=== PATIENT | female | born 1965 | race Caucasian/White ===

== ENCOUNTER 2020-03-24 12:39 | Emergency (ER) | payer MEDICARE, MEDICAID, SELFPAY ==
[2020-03-24 13:05] VITALS: BP 110/80; PULSE 96; RESP 18; TEMP 36.4; O2SAT 95; BMI 30.4
--- NOTE | 2020-03-24 13:41 | CT_ITS ---
EXAMINATION: CT HEAD WITHOUT CONTRAST CLINICAL INFORMATION: Headache. Evaluate for bleed. COMPARISON: Previous head CT scans most recent February 2016 and brain MRI June 2015 TECHNIQUE: Contiguous axial imaging was performed from the skull base to vertex without intravenous administration of contrast. This CT examination was performed using dose optimization techniques as appropriate, variously including the following: *Automated exposure control *Adjustment of mA and/or kV according to patient size (this includes techniques or standardized protocols for targeted exams where dose is matched to indication/reason for exam; i.e. extremities or head) *Use of iterative reconstruction technique DLP: 733 mGy-cm FINDINGS: There is no evidence of extra-axial collection. There is no evidence of intra-axial or extra-axial hemorrhage. The ventricles and extra-axial CSF spaces are prominent. The left lateral ventricle is slightly more dilated then the right in the ventricles are dilated out of proportion to the extra-axial CSF spaces suggestive of central atrophy.. Finding is unchanged from previous exams. There is nonspecific periventricular white matter disease. 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 No mass, mass effect or acute infarct is seen. Review at bone windows is normal. Visualized paranasal sinuses, mastoid air cells and middle ears are clear. CT/CT head/brain wo con IMPRESSION: No acute intracranial findings. Atrophy and white matter disease.
--- NOTE | 2020-03-24 13:57 | ED.HA ---
HPI - Headache General Chief Complaint: Headache Stated Complaint: headache Time Seen by Provider: 03/24/20 13:14 Source: patient Mode of arrival: ambulatory Limitations: no limitations History of Present Illness HPI Narrative: Patient presents to ED for headache that began at 05:00. Patient states no nausea, vomiting, loss of vision, eye pain, neck stiffness, fever, chills, or night sweats. Patient denies any slurred speech, or loss of vision. Patient has chronic weakness/paralysis of lower extremities due to multiple sclerosis, but she states she has feeling in her lower extremities. Patient states she usually suffers from chronic headaches and this is a similar presentation. PATIENT STATES HEADACHE IS GETTING BETTER. Related Data Previous Rx's Medication Instructions Recorded naproxen 500 mg PO BID PRN #20 tab 03/24/20 Allergies Allergy/AdvReac Type Severity Reaction Status Date / Time acetaminophen [From VICODIN] Allergy Unknown RASH Unverified 12/05/19 16:51 hydrocodone [From VICODIN] Allergy Unknown RASH Unverified 12/05/19 16:51 mirtazapine [MIRTAZAPINE] Allergy Unknown RASH Unverified 12/05/19 16:51 oxycodone [OXYCODONE] Allergy Unknown RASH Unverified 12/05/19 16:51 Review of Systems Review of Systems: Yes all other systems are reviewed and are negative Constitutional: Constitutional: Reports as per HPI, Reports no additional constitutional complaints and Reports headache(s) (Improving) Eyes: Eyes: Reports as per HPI and Reports no additional eye complaints ENT: Reports system reviewed and no additional complaints, except as documented, Reports as per HPI and Reports headache(s) (Improving) Cardiovascular: Cardiovascular: Reports as per HPI and Reports no additional cardiovascular complaints Respiratory: Respiratory: Reports as per HPI and Reports no additional respiratory complaints Gastrointestinal: Gastrointestinal: Reports as per HPI and Reports no additional gastrointestinal complaints Genitourinary: Genitourinary: Reports no additional female genitourinary complaints and Reports as per HPI Musculoskeletal: Musculoskeletal: Reports no additional musculoskeletal complaints and Reports as per HPI Comments: Multiple sclerosis Neurologic: Reports system reviewed and no additional complaints, except as documented, Reports as per HPI and Reports headache(s) (Improving) Psychiatric: Psychiatric: Reports no additional psychiatric complaints and Reports as per HPI [facility] Past Medical History Medical History (Updated 03/24/20 @ 16:04 by KAROLYN Root) Anxiety Multiple sclerosis Thyroid activity decreased Social History Social History Advance Directives: No Advance Directives Information Provided: No Physical Exam Vital Signs: Vital Signs: Last Vital Signs Temp 97.6 F 03/24/20 13:05 Pulse 98 03/24/20 15:53 Resp 16 03/24/20 15:53 BP 117/38 L 03/24/20 15:53 Pulse Ox 95 03/24/20 13:05 Body Mass Index 30.4 Const: General: cooperative, healthy appearing, comfortable, no acute distress, well developed and awake Orientation/consciousness: patient oriented x3 HENMT: Head: Yes normal to inspection, Yes No palpable skull fracture present, Yes normocephalic, Yes atraumatic, Yes abrasion, No Acrocyanosis present, No Bennett's sign, No contusion, No cranial bruits, No hematoma, No laceration, No occipital foramen tenderness, No palpable skull fracture, No raccoon eyes, No scalp lesion, Yes scalp tenderness, No Temporal artery tenderness present and No periorbital ecchymosis Eyes: Other: Negative for nystagmus. Negative for photophobia. General: appearance normal, both eyes and all related structures Neck: Neck: Yes normal visual inspection, Yes full ROM, Yes no lymphadenopathy, Yes no meningeal signs, Yes trachea midline, Yes supple and No tender Chest: Chest palpation & inspection: normal inspection of the chest and normal palpation of entire chest wall Resp: Effort & Inspection: normal respiratory effort and able to speak in complete sentences Auscultation: clear to auscultation bilaterally Cardio: Jugular venous distension: no JVD Heart sounds: S1 normal heart sound present and S2 normal heart sound present GI: Inspection: Yes normal to inspection and No abdominal wall ecchymosis Palpation (GI): Soft to palpation, not firm, nontender, no guarding and not rigid : General: No CVA tenderness and Yes no CVA tenderness Back/Spine/Pelvis: Back: no CVA tenderness, No CVA tenderness and No back tenderness Skin: General skin exam: no rashes or lesions noted and elasticity normal Neuro: Other: Negative facial droop. Negative slurred speech. Upper extremities and equal strength 5+. Patient not able to move lower extremities due to multiple sclerosis ( chronic)but has feeling in feet.. Negative pronator drift. General: patient oriented x3, no meningeal signs and CN's II-XI intact bilaterally Cranial nerves: Yes CN's II-XII intact bilaterally Extrem: General: Yes normal to inspection and Yes full ROM Psych: Appearance: grossly normal, well kempt and not disheveled Course Course Course Narrative: Not suspect a meningitis. Not suspecting optic neuritis. Not suspected multiple sclerosis exacerbation. Patient does not have any new neuro deficit. Patient pointed to posterior parIETAL of head where she is having pain. Patient states headache has actually improved BEFORE COMING TO THE ed. WILL SEND PATINET for head CT scan to rule out brain bleed although very unlikely. Reevaluation(s) Reevaluation #1: Head CT scan came back negative. Patient given Toradol for pain. Once again patient presently does not have any new neuro deficit/changes. Not suspecting multiple sclerosis exacerbation, or stroke. Head CT scan after 6 hours does not show brain bleed. Not sepsis suspected subarachnoid hemorrhage OR MENINGITIS. PATIENT HEADCHE RESOLVED. MDM - Headache MDM Narrative Medical decision making narrative: HEADACHE Discharge Plan Discharge Clinical Impression: Headache Patient Disposition: Home, Self-Care Instructions: General Headache (ED) Additional Instructions: Return to ED for any slurred speech, loss of vision, new weakness, facial droop, fever, chills, neck stiffness, body aches, or any other concerning symptoms. Prescriptions: New naproxen 500 mg tablet 500 mg PO BID PRN (Reason: pain) Qty: 20 RF: 0 Referrals: Keara Ordoñez, MSN [Primary Care Provider] - 2 days (Presents to the ED for headache that resolved. CT scan negative for any bleed or stroke.) Print Language: Senegalese
[2020-03-24] MEDS: Ketorolac Tromethamine 30 MG/ML VIAL IM (15:48)
[2020-03-24 15:53] VITALS: BP 117/38; PULSE 98; RESP 16
== END 2020-03-24 20:22 | disposition home or self-care (01) ==
PROVIDERS: Emergency Provider Emergency Medicine; PCP Family Medicine
DX: R51.9 Headache, unspecified (principal); G35 Multiple sclerosis
CPT/HCPCS: 70450; 96372; 99283; 99284; J1885

== ENCOUNTER 2020-04-15 12:28 | Observation (INO) | payer MEDICARE, MEDICAID, SELFPAY ==
[2020-04-15 12:39] VITALS: BP 106/55; BP 120/60; PULSE 77; PULSE 90; RESP 18; TEMP 36.5; O2SAT 96; O2SAT 97; BMI 28.8
--- NOTE | 2020-04-15 12:45 | CT_ITS ---
EXAMINATION: CT HEAD WITHOUT CONTRAST CLINICAL INFORMATION: Chronic headache. COMPARISON: CT brain 03/24/2020 TECHNIQUE: Contiguous axial imaging was performed from the skull base to vertex without intravenous administration of contrast. This CT examination was performed using dose optimization techniques as appropriate, variously including the following: *Automated exposure control *Adjustment of mA and/or kV according to patient size (this includes techniques or standardized protocols for targeted exams where dose is matched to indication/reason for exam; i.e. extremities or head) *Use of iterative reconstruction technique DLP: 761 mGy-cm FINDINGS: There is no evidence of acute intracranial hemorrhage or territorial infarction. No abnormal mass effect or midline shift is seen. Fagan to white matter differentiation is well preserved. No extra-axial fluid collections are identified. Both lateral ventricles are symmetrical but moderately dilated. There is diffuse periventricular hypodensity suggestive of chronic small vessel ischemic changes. The osseous structures and soft tissues are normal. The mastoid air cells and visualized portions of the paranasal sinuses are well aerated. CT/CT head/brain wo con IMPRESSION: No acute intracranial process seen Moderate cerebral volume loss and chronic small vessel ischemic changes in both cerebral hemispheres. No change from 03/24/2020
--- NOTE | 2020-04-15 12:47 | ECG_ITS ---
Test Reason : SYNCOPE Blood Pressure : / mmHG Vent. Rate : 070 BPM Atrial Rate : 070 BPM P-R Int : 188 ms QRS Dur : 066 ms QT Int : 402 ms P-R-T Axes : 052 024 037 degrees QTc Int : 434 ms Normal sinus rhythm Nonspecific T wave abnormality Abnormal ECG When compared with ECG of 23-FEB-2016 22:27, No significant change was found Referred By: Romie Mooney Electronically Signed By:Vicente Zavala
--- NOTE | 2020-04-15 13:02 | ED.SYNCOPE ---
HPI - Syncope General Chief Complaint: Syncope <KAROLYN Root - Last Filed: 04/15/20 22:19> Stated Complaint: FAINTING EPISODES <KAROLYN Root - Last Filed: 04/15/20 22:19> Time Seen by Provider: 04/15/20 12:36 <KAROLYN Root Last Filed: 04/15/20 22:19> Source: patient <KAROLYN Root Last Filed: 04/15/20 22:19> Mode of arrival: ambulatory <KAROLYN Root Last Filed: 04/15/20 22:19> Limitations: no limitations <KAROLYN Root Last Filed: 04/15/20 22:19> History of Present Illness HPI narrative: Patient presents to the ED for multiple syncopal episodes. As per report from EMS and SERVICES ADVISOR. Patient does not like to take a shower. Patient is bedbound. Usually P she has to stand up with an aide put in in a chair bring into a shower and then lithograph operator to his sitting chair and shower to get clean. As per EMS report, [facility] informed to that once again patient does not like taking shower. SERVICES ADVISOR informed in 1 day informed patient she was advised again to shower and a stood her up she syncopized. Once they placed her in this sitting shower chair to be clean and and when they informed patient that she had to take a shower patient then syncopized again. EMS report does not state patient having tremors of body to indicate seizure or urinary/bowel incontinence. As per patient she did not eat this morning and does recall in passing out twice in the shower. Patient denies having any chest pain, shortness of breath, or dizziness before passing out. Once again patient is bed-bound and has to be lifting from the bed into wheelchair or sitting chair. <KAROLYN Root Last Filed: 04/15/20 22:19> Related Data Home Medications: Home Medications Medication Instructions Recorded Confirmed albuterol sulfate [Ventolin HFA] 2 puff INHALATION Q6H PRN 04/15/20 04/15/20 baclofen 40 mg PO QID 04/15/20 04/15/20 bupropion HCl 300 mg PO QAM 04/15/20 04/15/20 calcium carbonate-vitamin D3 1 tab PO BIDWM 04/15/20 04/15/20 [Calcium 600 + D(3)] cyanocobalamin (vitamin B-12) 1,000 mcg PO DAILY 04/15/20 04/15/20 [Vitamin B-12] ferrous sulfate 325 mg PO DAILY 04/15/20 04/15/20 gabapentin 100 mg PO BEDTIME 04/15/20 04/15/20 glatiramer [Copaxone] 20 mg SUBCUT DAILY 04/15/20 04/15/20 levothyroxine 150 mcg PO DAILY@62904/15/20 04/15/20 naproxen 500 mg PO BID PRN 04/15/20 04/15/20 omeprazole 20 mg PO DAILY@62904/15/20 04/15/20 pravastatin 40 mg PO BEDTIME 04/15/20 04/15/20 trazodone 100 mg PO BEDTIME 04/15/20 04/15/20 Previous Rx's Medication Instructions Recorded cefuroxime axetil 250 mg PO Q12H #14 tab 04/17/20 <KAROLYN Root - Last Filed: 04/15/20 22:19> Allergies/Adverse Reactions: Allergies Allergy/AdvReac Type Severity Reaction Status Date / Time acetaminophen [From VICODIN] Allergy Intermediate RASH Verified 04/15/20 12:39 hydrocodone [From VICODIN] Allergy Intermediate RASH Verified 04/15/20 12:39 mirtazapine [MIRTAZAPINE] Allergy Intermediate RASH Verified 04/15/20 12:39 oxycodone [OXYCODONE] Allergy Intermediate RASH Verified 04/15/20 12:39 <KAROLYN Root - Last Filed: 04/15/20 22:19> Review of Systems Constitutional: Constitutional: Reports as per HPI and Reports no additional constitutional complaints <KAROLYN Root - Last Filed: 04/15/20 22:19> Eyes: Eyes: Reports as per HPI and Reports no additional eye complaints <KAROLYN Root - Last Filed: 04/15/20 22:19> ENT: Reports system reviewed and no additional complaints, except as documented and Reports as per HPI <KAROLYN Root Last Filed: 04/15/20 22:19> Cardiovascular: Cardiovascular: Reports as per HPI, Reports no additional cardiovascular complaints and Reports syncope (Twice) <KAROLYN Root - Last Filed: 04/15/20 22:19> Respiratory: Respiratory: Reports as per HPI and Reports no additional respiratory complaints <KAROLYN Root - Last Filed: 04/15/20 22:19> Gastrointestinal: Gastrointestinal: Reports as per HPI and Reports no additional gastrointestinal complaints <KAROLYN Root - Last Filed: 04/15/20 22:19> Genitourinary: Genitourinary: Reports no additional female genitourinary complaints and Reports as per HPI <KAROLYN Root - Last Filed: 04/15/20 22:19> Musculoskeletal: Musculoskeletal: Reports no additional musculoskeletal complaints and Reports as per HPI <KAROLYN Root - Last Filed: 04/15/20 22:19> Neurologic: Reports system reviewed and no additional complaints, except as documented, Reports as per HPI and Reports syncope (Twice) <KAROLYN Root - Last Filed: 04/15/20 22:19> Psychiatric: Psychiatric: Reports no additional psychiatric complaints and Reports as per HPI <KAROLYN Root - Last Filed: 04/15/20 22:19> [facility] Past Medical History Medical History: Medical History Anxiety Multiple sclerosis Thyroid activity decreased <KAROLYN Root - Last Filed: 04/15/20 22:19> Social History Social History: Social History Alcohol intake: never Smoking Status: Never smoker Advance Directives Date on File: 04/15/20 service: No Current occupational status: disabled <KAROLYN Root - Last Filed: 04/15/20 22:19> Physical Exam Vital Signs: Vital Signs: Last Vital Signs Temp 97.8 F 04/17/20 15:20 Pulse 19 L 04/17/20 15:20 Resp 19 04/17/20 15:20 BP 123/69 04/17/20 15:20 Pulse Ox 94 04/17/20 15:20 Body Mass Index 28.8 <KAROLYN Root - Last Filed: 04/15/20 22:19> Vital Signs: Last Vital Signs Temp 97.8 F 04/17/20 15:20 Pulse 19 L 04/17/20 15:20 Resp 19 04/17/20 15:20 BP 123/69 04/17/20 15:20 Pulse Ox 94 04/17/20 15:20 Body Mass Index 28.8 <Josue Todd MD - Last Filed: 04/22/20 10:48> Const: General: cooperative, healthy appearing, comfortable, no acute distress, well developed, alert, awake and Physically active <KAROLYN Root - Last Filed: 04/15/20 22:19> Orientation/consciousness: patient oriented x3 <KAROLYN Root - Last Filed: 04/15/20 22:19> HENMT: Head: Yes normal to inspection and Yes No palpable skull fracture present <KAROLYN Root - Last Filed: 04/15/20 22:19> Eyes: General: appearance normal, both eyes and all related structures <KAROLYN Root - Last Filed: 04/15/20 22:19> Neck: Neck: Yes normal visual inspection, Yes full ROM, Yes no lymphadenopathy, Yes no meningeal signs, Yes trachea midline, Yes supple and No tender <KAROLYN Root - Last Filed: 04/15/20 22:19> Chest: Chest palpation & inspection: normal inspection of the chest and normal palpation of entire chest wall <KAROLYN Root - Last Filed: 04/15/20 22:19> Resp: Effort & Inspection: normal respiratory effort and able to speak in complete sentences <KAROLYN Root Last Filed: 04/15/20 22:19> Auscultation: clear to auscultation bilaterally <KAROLYN Root - Last Filed: 04/15/20 22:19> Cardio: Jugular venous distension: no JVD <KAROLYN Root Last Filed: 04/15/20 22:19> Heart sounds: S1 normal heart sound present and S2 normal heart sound present <KAROLYN Root Last Filed: 04/15/20 22:19> GI: Inspection: Yes normal to inspection and No abdominal wall ecchymosis <KAROLYN Root Last Filed: 04/15/20 22:19> Palpation (GI): Soft to palpation, not firm, nontender, no guarding and not rigid <KAROLYN Root - Last Filed: 04/15/20 22:19> : General: No CVA tenderness and Yes no CVA tenderness <KAROLYN Root - Last Filed: 04/15/20 22:19> Back/Spine/Pelvis: Back: no CVA tenderness, No CVA tenderness and No back tenderness <KAROLYN Root - Last Filed: 04/15/20 22:19> Skin: General skin exam: no rashes or lesions noted and elasticity normal <KAROLYN Root - Last Filed: 04/15/20 22:19> Neuro: Other: Negative for slurred speech. Negative for facial droop. Patient at baseline could move only upper extremities. Patient cannot move lower extremities AT BASELINE. Patient does have sensation in lower extremities. <KAROLYN Root - Last Filed: 04/15/20 22:19> General: patient oriented x3, no meningeal signs and CN's II-XI intact bilaterally <KAROLYN Root - Last Filed: 04/15/20 22:19> Cranial nerves: Yes CN's II-XII intact bilaterally <KAROLYN Root - Last Filed: 04/15/20 22:19> Extrem: General: Yes normal to inspection and Yes full ROM <KAROLYN Root - Last Filed: 04/15/20 22:19> Psych: Appearance: grossly normal, well kempt and not disheveled <KAROLYN Root - Last Filed: 04/15/20 22:19> Course Course Course Narrative: History physical exam indicate vasovagal syncope, but due to H patient will have a medical workup which included blood work, troponin, EKG, and head CT. Presently negative for any neuro deficit. Not suspecting MS exacerbation. Patient will be given IV fluids. <KAROLYN Root - Last Filed: 04/15/20 22:19> I have reviewed the chart <Josue Todd MD - Last Filed: 04/22/20 10:48> Reevaluation(s) Reevaluation #1: Patient's troponin came back negative. Patient's EKG negative for STEMI. Patient head CT came back normal. Due to multiple episodes of syncope D-dimer was sent to see if patient should have a CT to rule out PE. Patient denies any chest pain, shortness of breath, is not hypoxic or tachycardic. <KAROLYN Root - Last Filed: 04/15/20 22:19> Time: 13:04 <KAROLYN Root - Last Filed: 04/15/20 22:19> Reevaluation #2: Patient D-dimer negative. Wells score 0. Once again patient does not have any new neuro deficit. Case presented to hospitalist for admission. <KAROLYN Root - Last Filed: 04/15/20 22:19> Time: 15:38 <KAROLYN Root - Last Filed: 04/15/20 22:19> MDM - Syncope Lab Data Result diagrams: : 04/15/20 13:04 04/15/20 13:04 <KAROLYN Root - Last Filed: 04/15/20 22:19> Labs: Lab Results 04/15/20 04/15/20 04/15/20 Range/Units 13:04 13:04 13:04 WBC 9.5 (4.8-10.8) X10*3/uL RBC 4.73 (4.20-5.50) X10*6/uL Hgb 13.4 (12.0-16.0) g/dl Hct 43.2 (37-47) % MCV 91.3 (80-98) fL MCH 28.3 (27.0-33.0) pg MCHC 31.0 (31.0-35.0) g/dl RDW 13.7 (11.0-16.0) % Plt Count 224 (160-400) X10*3/uL MPV 11.3 (9.4-12.3) fL Immature Gran % (Auto) 0.3 (0.0-0.4) % Neut % (Auto) 75.8 H (45-73) % Lymph % (Auto) 15.4 L (20-40) % [place] % (Auto) 5.8 (2-11) % Eos % (Auto) 1.7 (0-4) % Baso % (Auto) 1.0 (0-2) % Lymph # (Auto) 1.5 (1.2-4.9) X10*3/uL [place] # (Auto) 0.6 (0.1-1.2) X10*3/uL Eos # (Auto) 0.2 (0.0-0.4) X10*3/uL Baso # (Auto) 0.1 (0.0-0.2) X10*3/uL Abs Immat Gran (auto) 0.03 (0.00-0.03) X10*3/uL Absolute Neuts (auto) 7.2 (2.0-8.3) X10*3/uL Absolute Nucleated RBC 0.000 (0.0-0.012) X10*3/uL Nucleated RBC % (auto) 0.0 (0.0-0.2) /100WBC PT 13.4 H (10.8-13.0) SEC INR 1.1 (0.9-1.1) APTT 32.0 (24.1-38.0) SEC D-Dimer < 200 NG/ML Sodium 140 (135-145) mmol/L Potassium 4.2 (3.3-5.1) mmol/l Chloride 104 (96-108) mmol/L Carbon Dioxide 26 (22-29) mmol/L Anion Gap 14 (12-20) BUN 18 H (9-16) mg/dL Creatinine 0.58 (0.5-1.4) mg/dL Estim Creat Clear Calc 124.4 Estimated GFR > 60 Random Glucose 111 (60-115) mg/dL Calcium 9.5 (8.4-10.2) mg/dL Total Bilirubin 0.4 (0.0-1.0) mg/dL AST 16 (5-31) U/L ALT 16 (0-31) U/L Alkaline Phosphatase 82 (39-117) U/L Troponin I High Sens (<3.5-17.0) ng/L Total Protein 7.0 (6.5-8.0) g/dL Albumin 3.6 (3.5-5.0) g/dL COVID-19 (MARIELA) (Negative) COVID-19 Clin Com 04/15/20 04/15/20 Range/Units 13:04 14:31 WBC (4.8-10.8) X10*3/uL RBC (4.20-5.50) X10*6/uL Hgb (12.0-16.0) g/dl Hct (37-47) % MCV (80-98) fL MCH (27.0-33.0) pg MCHC (31.0-35.0) g/dl RDW (11.0-16.0) % Plt Count (160-400) X10*3/uL MPV (9.4-12.3) fL Immature Gran % (Auto) (0.0-0.4) % Neut % (Auto) (45-73) % Lymph % (Auto) (20-40) % [place] % (Auto) (2-11) % Eos % (Auto) (0-4) % Baso % (Auto) (0-2) % Lymph # (Auto) (1.2-4.9) X10*3/uL [place] # (Auto) (0.1-1.2) X10*3/uL Eos # (Auto) (0.0-0.4) X10*3/uL Baso # (Auto) (0.0-0.2) X10*3/uL Abs Immat Gran (auto) (0.00-0.03) X10*3/uL Absolute Neuts (auto) (2.0-8.3) X10*3/uL Absolute Nucleated RBC (0.0-0.012) X10*3/uL Nucleated RBC % (auto) (0.0-0.2) /100WBC PT (10.8-13.0) SEC INR (0.9-1.1) APTT (24.1-38.0) SEC D-Dimer NG/ML Sodium (135-145) mmol/L Potassium (3.3-5.1) mmol/l Chloride (96-108) mmol/L Carbon Dioxide (22-29) mmol/L Anion Gap (12-20) BUN (9-16) mg/dL Creatinine (0.5-1.4) mg/dL Estim Creat Clear Calc Estimated GFR Random Glucose (60-115) mg/dL Calcium (8.4-10.2) mg/dL Total Bilirubin (0.0-1.0) mg/dL AST (5-31) U/L ALT (0-31) U/L Alkaline Phosphatase (39-117) U/L Troponin I High Sens < 3.5 (<3.5-17.0) ng/L Total Protein (6.5-8.0) g/dL Albumin (3.5-5.0) g/dL COVID-19 (MARIELA) Negative (Negative) COVID-19 Clin Com See Note <KAROLYN Root - Last Filed: 04/15/20 22:19> Lab Results 04/15/20 04/15/20 04/15/20 Range/Units 13:04 13:04 13:04 WBC 9.5 (4.8-10.8) X10*3/uL RBC 4.73 (4.20-5.50) X10*6/uL Hgb 13.4 (12.0-16.0) g/dl Hct 43.2 (37-47) % MCV 91.3 (80-98) fL MCH 28.3 (27.0-33.0) pg MCHC 31.0 (31.0-35.0) g/dl RDW 13.7 (11.0-16.0) % Plt Count 224 (160-400) X10*3/uL MPV 11.3 (9.4-12.3) fL Immature Gran % (Auto) 0.3 (0.0-0.4) % Neut % (Auto) 75.8 H (45-73) % Lymph % (Auto) 15.4 L (20-40) % [place] % (Auto) 5.8 (2-11) % Eos % (Auto) 1.7 (0-4) % Baso % (Auto) 1.0 (0-2) % Lymph # (Auto) 1.5 (1.2-4.9) X10*3/uL [place] # (Auto) 0.6 (0.1-1.2) X10*3/uL Eos # (Auto) 0.2 (0.0-0.4) X10*3/uL Baso # (Auto) 0.1 (0.0-0.2) X10*3/uL Abs Immat Gran (auto) 0.03 (0.00-0.03) X10*3/uL Absolute Neuts (auto) 7.2 (2.0-8.3) X10*3/uL Absolute Nucleated RBC 0.000 (0.0-0.012) X10*3/uL Nucleated RBC % (auto) 0.0 (0.0-0.2) /100WBC PT 13.4 H (10.8-13.0) SEC INR 1.1 (0.9-1.1) APTT 32.0 (24.1-38.0) SEC D-Dimer < 200 NG/ML Sodium 140 (135-145) mmol/L Potassium 4.2 (3.3-5.1) mmol/l Chloride 104 (96-108) mmol/L Carbon Dioxide 26 (22-29) mmol/L Anion Gap 14 (12-20) BUN 18 H (9-16) mg/dL Creatinine 0.58 (0.5-1.4) mg/dL Estim Creat Clear Calc 124.4 Estimated GFR > 60 Random Glucose 111 (60-115) mg/dL Calcium 9.5 (8.4-10.2) mg/dL Total Bilirubin 0.4 (0.0-1.0) mg/dL AST 16 (5-31) U/L ALT 16 (0-31) U/L Alkaline Phosphatase 82 (39-117) U/L Troponin I High Sens (<3.5-17.0) ng/L Total Protein 7.0 (6.5-8.0) g/dL Albumin 3.6 (3.5-5.0) g/dL COVID-19 (MARIELA) (Negative) COVID-19 Clin Com 04/15/20 04/15/20 Range/Units 13:04 14:31 WBC (4.8-10.8) X10*3/uL RBC (4.20-5.50) X10*6/uL Hgb (12.0-16.0) g/dl Hct (37-47) % MCV (80-98) fL MCH (27.0-33.0) pg MCHC (31.0-35.0) g/dl RDW (11.0-16.0) % Plt Count (160-400) X10*3/uL MPV (9.4-12.3) fL Immature Gran % (Auto) (0.0-0.4) % Neut % (Auto) (45-73) % Lymph % (Auto) (20-40) % [place] % (Auto) (2-11) % Eos % (Auto) (0-4) % Baso % (Auto) (0-2) % Lymph # (Auto) (1.2-4.9) X10*3/uL [place] # (Auto) (0.1-1.2) X10*3/uL Eos # (Auto) (0.0-0.4) X10*3/uL Baso # (Auto) (0.0-0.2) X10*3/uL Abs Immat Gran (auto) (0.00-0.03) X10*3/uL Absolute Neuts (auto) (2.0-8.3) X10*3/uL Absolute Nucleated RBC (0.0-0.012) X10*3/uL Nucleated RBC % (auto) (0.0-0.2) /100WBC PT (10.8-13.0) SEC INR (0.9-1.1) APTT (24.1-38.0) SEC D-Dimer NG/ML Sodium (135-145) mmol/L Potassium (3.3-5.1) mmol/l Chloride (96-108) mmol/L Carbon Dioxide (22-29) mmol/L Anion Gap (12-20) BUN (9-16) mg/dL Creatinine (0.5-1.4) mg/dL Estim Creat Clear Calc Estimated GFR Random Glucose (60-115) mg/dL Calcium (8.4-10.2) mg/dL Total Bilirubin (0.0-1.0) mg/dL AST (5-31) U/L ALT (0-31) U/L Alkaline Phosphatase (39-117) U/L Troponin I High Sens < 3.5 (<3.5-17.0) ng/L Total Protein (6.5-8.0) g/dL Albumin (3.5-5.0) g/dL COVID-19 (MARIELA) Negative (Negative) COVID-19 Clin Com See Note <Josue Todd MD - Last Filed: 04/22/20 10:48> ECG Data Interpretation: Normal sinus rhythm. Ventricular rate 70. Pr interval 188. QRS 66. QTC 434. Negative STEMI <KAROLYN Root - Last Filed: 04/15/20 22:19> Discharge Plan Discharge Clinical Impression: Syncope <KAROLYN Root - Last Filed: 04/15/20 22:19> Patient Disposition: Admitted As Inpatient <KAROLYN Root - Last Filed: 04/15/20 22:19> Interventions: Admission Worksheet (ED) Last Done: 04/15/20 18:47 <KAROLYN Root - Last Filed: 04/15/20 22:19> Discharge Date/Time: 04/15/20 19:44 <KAROLYN Root - Last Filed: 04/15/20 22:19>
[2020-04-15] MEDS: 0.9 % Sodium Chloride 1,000 ML 999 ML IV ×2 (13:06→14:05)
[2020-04-15 13:16] LABS: MANUAL DIFF FLAG NO
[2020-04-15 13:17] LABS: Eosinophils Percent Auto 1.7 % (0-4); Hematocrit 43.2 % (37-47); Hemoglobin 13.4 g/dl (12.0-16.0); Imm Gran Pct Auto 0.3 % (0.0-0.4); Lymphocytes Percent Auto 15.4 % (20-40); Mean Corpuscular Hemoglobin 28.3 pg (27.0-33.0); Mean Corpuscular Volume 91.3 fL (80-98); Mean Platelet Volume 11.3 fL (9.4-12.3); Monocytes Percent Auto 5.8 % (2-11); Neutrophils Percent Auto 75.8 % (45-73); Platelet Count 224 X10*3/uL (160-400); Red Blood Count 4.73 X10*6/uL (4.20-5.50); Red Cell Distribution Width 13.7 % (11.0-16.0); White Blood Count 9.5 X10*3/uL (4.8-10.8)
[2020-04-15 13:18] LABS: Basophils Absolute Auto 0.1 X10*3/uL (0.0-0.2); Eosinophils Absolute Auto 0.2 X10*3/uL (0.0-0.4); Imm Gran Abs Auto 0.03 X10*3/uL (0.00-0.03); Lymphocytes Absolute Auto 1.5 X10*3/uL (1.2-4.9); Monocytes Absolute Auto 0.6 X10*3/uL (0.1-1.2); Neutrophils Absolute Auto 7.2 X10*3/uL (2.0-8.3)
[2020-04-15 13:23] LABS: INTERNATIONAL NORM RATIO 1.1 (0.9-1.1); Prothrombin Time 13.4 SEC (10.8-13.0)
[2020-04-15 13:42] LABS: Troponin-I High Sensitivity < 3.5 ng/L (<3.5-17.0)
[2020-04-15 13:51] LABS: Alanine Aminotransferase 16 U/L (0-31); Albumin Level 3.6 g/dL (3.5-5.0); Alkaline Phosphatase 82 U/L (39-117); Anion Gap 14 (12-20); Aspartate Amino Transferase 16 U/L (5-31); Bilirubin Total 0.4 mg/dL (0.0-1.0); Blood Urea Nitrogen 18 mg/dL (9-16); Calcium 9.5 mg/dL (8.4-10.2); Carbon Dioxide 26 mmol/L (22-29); Chloride 104 mmol/L (96-108); Creatinine Clr Calc Pharmacy 124.4; Estimated Glomerular Filt Rate > 60; Glucose Random 111 mg/dL (60-115); Potassium 4.2 mmol/l (3.3-5.1); Sodium 140 mmol/L (135-145)
--- NOTE | 2020-04-15 14:05 | PC.NURSE ---
second liter of ivf running per order, pt requesting ice chips- provider would like pt to hold off for now-pt notified, bus monitor ns 60s, pt currently watching tv, will continue to monitor.
[2020-04-15 14:36] LABS: D Dimer < 200 NG/ML
[2020-04-15 15:15] LABS: COVID-19 Test Negative (Negative)
[2020-04-15 15:41] VITALS: BP 107/65; PULSE 75; RESP 18; TEMP 36.6; O2SAT 95
--- NOTE | 2020-04-15 15:50 | PC.NURSE ---
patient a&ox3, pt aware she is being admitted, vitals stable, will continue to monitor.
[2020-04-15 16:57] VITALS: BP 107/74; PULSE 68
[2020-04-15 16:58] VITALS: BP 94/55; PULSE 66
--- NOTE | 2020-04-15 17:00 | PM.IMHP ---
History of Present Illness Date of Service: 04/15/20 Chief Complaint: syncope 55-year-old female with history of multiple sclerosis and bed-bound, history was taken from patient as well as ED physician information: It seems like patient was about to take shower with the help of her PRODUCTION WEIGHER but she syncopized for few seconds for 2 times. She says that she has not eating well from past few days has less appetite, denies any nausea or vomiting or abdominal pain or fever or chills. She said prior to the passing out she felt somewhat lightheaded but otherwise denies any palpitation or any seizure-like activity or any chest pain-before/during or after episode of syncope. She said that she also gets somewhat anxious when she needs to get the shower. She had a prior syncopal episode 1 year ago and that she says thats episode was related to hot whether- she says it does not looks similar to her prior syncopal episode. She only moves upper extremities, does not move lower extremities and bed-bound due to MS. Lab bauer found to have pre renal azotemia otherwise most of the other labs are unremarkable. ED physician requested admission for syncope. Review of Systems Review of Systems: Patient denies any chest pain or palpitations or shortness of breath or cough or abdominal pain or fever or chills or new weakness or numbness or any urinary complaints. Denies any visual changes or discharge or any ear pain or throat pain. [facility] Medical History Anxiety Multiple sclerosis Thyroid activity decreased Functional capacity: bed bound Pertinent family history: Patient's brother has blood cancer-she does not know which one. Social History Alcohol intake: never Smoking Status: Never smoker Smoked in Last 30 Days: No Use of substances other than those prescribed or required for medical reasons: No Advance Directives: Yes Advance Directives Information Provided: Yes Advance Directives on File: No Advance Directives Date on File: 04/15/20 service: No Current occupational status: disabled Meds Allergies Allergy/AdvReac Type Severity Reaction Status Date / Time acetaminophen [From VICODIN] Allergy Intermediate RASH Verified 04/15/20 12:39 hydrocodone [From VICODIN] Allergy Intermediate RASH Verified 04/15/20 12:39 mirtazapine [MIRTAZAPINE] Allergy Intermediate RASH Verified 04/15/20 12:39 oxycodone [OXYCODONE] Allergy Intermediate RASH Verified 04/15/20 12:39 Home Medications Medication Instructions Recorded Confirmed Type albuterol sulfate [Ventolin HFA] 2 puff INHALATION Q6H PRN 04/15/20 04/15/20 History baclofen 40 mg PO QID 04/15/20 04/15/20 History bupropion HCl 300 mg PO QAM 04/15/20 04/15/20 History calcium carbonate-vitamin D3 1 tab PO BIDWM 04/15/20 04/15/20 History [Calcium 600 + D(3)] cyanocobalamin (vitamin B-12) 1,000 mcg PO DAILY 04/15/20 04/15/20 History [Vitamin B-12] ferrous sulfate 325 mg PO DAILY 04/15/20 04/15/20 History gabapentin 100 mg PO BEDTIME 04/15/20 04/15/20 History glatiramer [Copaxone] 20 mg SUBCUT DAILY 04/15/20 04/15/20 History levothyroxine 150 mcg PO DAILY@0630 04/15/20 04/15/20 History naproxen 500 mg PO BID PRN 04/15/20 04/15/20 History omeprazole 20 mg PO DAILY@0630 04/15/20 04/15/20 History pravastatin 40 mg PO BEDTIME 04/15/20 04/15/20 History trazodone 100 mg PO BEDTIME 04/15/20 04/15/20 History Physical Exam Vital Signs and Narrative: Vital Signs: Last Vital Signs Temp 97.8 F 04/15/20 15:41 Pulse 68 04/15/20 16:57 Resp 18 04/15/20 15:41 BP 107/74 04/15/20 16:57 Pulse Ox 95 04/15/20 15:41 Body Mass Index 28.8 Physical exam: Constitutional: Not in acute distress, pleasant female. HEENT: Eyes: Anicteric, no discharge Neck supple Cvs: rrr, [id number] , no murmur res: clear to auscultation ,no rhonchii or wheezing abd: no rebound or guarding ,nt, bs present. ext pulses present , no cyanosis MS : moves upper ext , lower ext weakness (chronic), bedbound. neuro: axo3 , lower ext weakness , bedbound. psych: euthymic Results Labs CBC and Chem 7: 04/15/20 13:04 04/15/20 13:04 Labs: Laboratory Results - last 24 hr 04/15/20 04/15/20 04/15/20 13:04 13:04 13:04 MCV 91.3 MCH 28.3 MCHC 31.0 RDW 13.7 Plt Count 224 MPV 11.3 Immature Gran % (Auto) 0.3 Neut % (Auto) 75.8 H Lymph % (Auto) 15.4 L [place] % (Auto) 5.8 Eos % (Auto) 1.7 Baso % (Auto) 1.0 Lymph # (Auto) 1.5 [place] # (Auto) 0.6 Eos # (Auto) 0.2 Baso # (Auto) 0.1 Abs Immat Gran (auto) 0.03 Absolute Neuts (auto) 7.2 Absolute Nucleated RBC 0.000 Nucleated RBC % (auto) 0.0 PT 13.4 H INR 1.1 APTT 32.0 D-Dimer < 200 Anion Gap 14 Estim Creat Clear Calc 124.4 Estimated GFR > 60 Random Glucose 111 Calcium 9.5 Total Bilirubin 0.4 AST 16 ALT 16 Alkaline Phosphatase 82 Troponin I High Sens Total Protein 7.0 Albumin 3.6 COVID-19 (MARIELA) COVID-19 Clin Com 04/15/20 04/15/20 13:04 14:31 MCV MCH MCHC RDW Plt Count MPV Immature Gran % (Auto) Neut % (Auto) Lymph % (Auto) [place] % (Auto) Eos % (Auto) Baso % (Auto) Lymph # (Auto) [place] # (Auto) Eos # (Auto) Baso # (Auto) Abs Immat Gran (auto) Absolute Neuts (auto) Absolute Nucleated RBC Nucleated RBC % (auto) PT INR APTT D-Dimer Anion Gap Estim Creat Clear Calc Estimated GFR Random Glucose Calcium Total Bilirubin AST ALT Alkaline Phosphatase Troponin I High Sens < 3.5 Total Protein Albumin COVID-19 (MARIELA) Negative COVID-19 Clin Com See Note Imaging Radiologist's Impressions: Impressions Head CT 04/15/20 12:45 IMPRESSION: No acute intracranial process seen Moderate cerebral volume loss and chronic small vessel ischemic changes in both cerebral hemispheres. No change from 03/24/2020 Assessment and Plan (1) Syncope: Status: Acute 1. Syncope:? Unclear etiology: Differential probably dehydration versus orthostasis versus vasovagal vs anxiety EKG and troponin seems fine Monitor on tele Hydration with normal saline IV Orthostasis cardio eval 2. Hypothyroidism: Continue home levothyroxine . 3. Ms hx: Continue capxone , baclofen. 4. History of depression: Continue bupropion DVT prophylaxis with Lovenox. Patient wants to be full code of currently she says that she will inform us if she changes her mind.
[2020-04-15 17:05] VITALS: BP 113/66; PULSE 73
[2020-04-15] MEDS: 0.9 % Sodium Chloride 1,000 ML 100 ML IVCONT (17:20)
[2020-04-15] MEDS: Baclofen 20 MG TABLET 40 MG PO ×2 (17:25→20:29)
[2020-04-15] MEDS: Enoxaparin Sodium 40 MG/0.4 ML SYRINGE SUBCUT (17:25)
--- NOTE | 2020-04-15 18:14 | PC.NURSE ---
report given to floor
[2020-04-15 18:46] VITALS: BP 121/58; PULSE 67; RESP 18; TEMP 36.3; O2SAT 98
[2020-04-15] MEDS: Gabapentin 100 MG CAPSULE PO (20:29)
[2020-04-15] MEDS: Pravastatin Sodium 40 MG TABLET PO (20:29)
[2020-04-15] MEDS: 0.9 % Sodium Chloride Flush 3 ML SYRINGE IVFLUSH (20:30)
[2020-04-16] VITALS (7 sets, daily range): BP systolic 91–126; BP diastolic 54–69; PULSE 61–86; RESP 16–18; TEMP 36.1–36.8; O2SAT 94–98
[2020-04-16] MEDS: 0.9 % Sodium Chloride 1,000 ML 100 ML IVCONT ×2 (03:13→15:00)
[2020-04-16] MEDS: Omeprazole 20 MG CAPSULE.DR PO (05:24)
[2020-04-16] MEDS: Levothyroxine Sodium 150 MCG TABLET PO (05:24)
--- NOTE | 2020-04-16 08:32 | MHC.CM.PN ---
CM met with Patient at bedside. Patient lives alone in an apartment and she is bedbound (MS). 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 ADRIENNE has initiated and will follow for dc planning. EMILE addressed with Patient and original has been given to her and a copy has been placed on the chart.PCP is Dr. Keara Ordoñez.
[2020-04-16] MEDS: Ferrous Sulfate 324 MG TABLET.DR PO (08:50)
[2020-04-16] MEDS: Cyanocobalamin (Vitamin B-12) 1,000 MCG TABLET 1000 MCG PO (08:50)
[2020-04-16] MEDS: buPROPion HCl XL 150 MG TAB.ER.24H 300 MG PO (08:50)
[2020-04-16] MEDS: Baclofen 20 MG TABLET 40 MG PO ×3 (08:50→17:17)
[2020-04-16] MEDS: 0.9 % Sodium Chloride Flush 3 ML SYRINGE IVFLUSH (08:51)
--- NOTE | 2020-04-16 09:00 | CA_ITS ---
Transthoracic Echocardiogram Patient (Last, First, Middle): Margareth Mccoy, Gender: Female Date of : 1965 Age: 55 Procedure Date: 04/16/2020 Procedure Type: Transthoracic Echocardiogram Location: [facility] [place] Height: 172.72 cm Weight: 86.18 kg BSA: 2.00 m2 Heart Rate: bpm BP: 110 / 56 mmHg Chain Link Fence Installer: RADHA Referring MD: Stu Loco MD Symptoms: syncope Conclusions: - Normal biventricular function. - No significant valvular or pericardial pathology. Findings Left Ventricle Normal left ventricular size, thickness, systolic function, and wall motion. The visually estimated ejection fraction is between 60-65%. Diastolic function is normal for age. Right Ventricle Normal right ventricular cavity size and systolic function. Atria Both atria are normal in size. Aortic Valve The aortic valve was not well visualized. There is no aortic valve stenosis. There is mild aortic valve regurgitation. Mitral Valve The mitral valve appears normal. There is no mitral valve regurgitation. There is no mitral valve stenosis. Pulmonic Valve The pulmonic valve was not well visualized. Tricuspid Valve Normal tricuspid valve structure and function. There is trace tricuspid valve regurgitation. Tricuspid regurgitation envelope is inadequate for calculation of right ventricular systolic pressure. Indeterminate right atrial pressure. Great Vessels There is mild dilatation of the ascending aorta. The visualized portions of the pulmonary artery and branches are normal. Venous The inferior vena cava was not well visualized. Pericardium/Pleural There is no evidence of pericardial effusion. Prior Study Comparison No prior study available for comparison. Measurements 2D Linear Measurements IVSd: 0.82 0.6-0.9/0.6-1.0 cm LVIDd: 4.47 3.9-5.3/4.2-5.9 cm LVIDd Index: 2.24 2.4-3.2/2.2-3.1 cm/m2 LVIDs: 2.91 2.0-3.6 cm LVPWd: 0.81 0.7-1.1 cm Ao Root: 2.90 2.1-3.5 cm LA Diam: 3.50 2.7-3.8/3.0-4.0 cm LAIDs Index: 1.75 1.5-2.3 cm/m2 LV Mass: 142.71 67-162/88-224 g LV Mass Index: 71.35 43-95/49-115 g/m2 LVOT Diam: 2.20 3.0+(-)1.3 cm Mitral Valve MV Pk E: 0.59 MV PK A: 0.57 MV Decel Time: 185.00 E/A: 1.00 E'Lateral: 11.30 E'Medial: 7.54 E/E' Med: 7.80 E/E' Lat: 5.20 PHT: 54.00 MVA PHT: 4.07 Decel Mclean: 3.17 Aortic Valve AoV Pk Atul: 1.14 AoV Pk Grad: 5.00 AI Pk Atul: 3.60 AI Mclean: 1.82 LVOT LVOT Pk Atul: 0.98 LVOT Mn Atul: 0.67 LVOT VTI: 0.22 LVOT Pk Grad: 4.00 LVOT Mn Grad: 2.00 LVOT Diam: 2.20 LVOT Area: 3.80 Diastolic Function MV Pk E: 0.59 MV Pk A: 0.57 E/A: 1.00 E'Medial: 7.54 E/E' Med: 7.80 E' Laterial: 11.30 E/E' Lat: 5.20 Tricuspid Valve TR Pk Atul: 179.00 TR Pk Grad: 13.00 Great Vessels Aorta Ao Root-2D: 2.90 2.0-3.7 cm Ao Asc: 3.40 2.1-3.4 cm Updated in Other Vendor System with Status of Final Vicente Zavala MD electronically signed on 04/17/2020 12:27:12 PM with status of Final
[2020-04-16] MEDS: Calcium + Vitamin D 250 MG TABLET PO ×2 (09:43→17:17)
--- NOTE | 2020-04-16 13:11 | P.CNNE_ITS ---
History of Present Illness Data of Consult Service Date: 04/16/20 Primary Care Provider: Keara Ordoñez, MSN 55 years old woman with underlying diagnosis of multiple sclerosis a patient of Dr. Jc Esposito in [place]. She came to hospital with a syncopal episode. Apparently she was helped by caretakers and while she was sitting close to shower when she syncopized for few seconds. It happened couple of times. There was no documentation or witnessing of any convulsion or abnormal movement or focal weakness. As far as MS is concerned, she started with symptom of footdrop 15 years ago and then was put on Copaxone. She has had that over the years she tried some of the medicines that did not work. For last 2 years she has been bed-bound disable from this condition. There was no previous history of seizure disorder Review of Systems Review of Systems: No recent cold or flu-like illness. FOR[facility]LY [facility] Past Medical History Medical History Anxiety Multiple sclerosis Thyroid activity decreased Functional capacity: bed bound Social History Social History Alcohol intake: never Smoking Status: Never smoker Smoked in Last 30 Days: No Use of substances other than those prescribed or required for medical reasons: No Advance Directives: Yes Advance Directives Information Provided: Yes Advance Directives on File: No Advance Directives Date on File: 04/15/20 service: No Current occupational status: disabled Meds Allergies Allergy/AdvReac Type Severity Reaction Status Date / Time acetaminophen [From VICODIN] Allergy Intermediate RASH Verified 04/15/20 12:39 hydrocodone [From VICODIN] Allergy Intermediate RASH Verified 04/15/20 12:39 mirtazapine [MIRTAZAPINE] Allergy Intermediate RASH Verified 04/15/20 12:39 oxycodone [OXYCODONE] Allergy Intermediate RASH Verified 04/15/20 12:39 Home Medications Medication Instructions Recorded Confirmed Type albuterol sulfate [Ventolin HFA] 2 puff INHALATION Q6H PRN 04/15/20 04/15/20 History baclofen 40 mg PO QID 04/15/20 04/15/20 History bupropion HCl 300 mg PO QAM 04/15/20 04/15/20 History calcium carbonate-vitamin D3 1 tab PO BIDWM 04/15/20 04/15/20 History [Calcium 600 + D(3)] cyanocobalamin (vitamin B-12) 1,000 mcg PO DAILY 04/15/20 04/15/20 History [Vitamin B-12] ferrous sulfate 325 mg PO DAILY 04/15/20 04/15/20 History gabapentin 100 mg PO BEDTIME 04/15/20 04/15/20 History glatiramer [Copaxone] 20 mg SUBCUT DAILY 04/15/20 04/15/20 History levothyroxine 150 mcg PO DAILY@62904/15/20 04/15/20 History naproxen 500 mg PO BID PRN 04/15/20 04/15/20 History omeprazole 20 mg PO DAILY@62904/15/20 04/15/20 History pravastatin 40 mg PO BEDTIME 04/15/20 04/15/20 History trazodone 100 mg PO BEDTIME 04/15/20 04/15/20 History Physical Exam Vital Signs: Vital Signs: Last Vital Signs Temp 98.0 F 04/16/20 11:06 Pulse 68 04/16/20 11:06 Resp 18 04/16/20 11:06 BP 107/54 L 04/16/20 11:06 Pulse Ox 98 04/16/20 11:06 Body Mass Index 28.8 She was alert and awake with normal spontaneity of speech fluency comprehension and flat affect. Pupils were round reactive to light. External ocular muscles were intact. Visual selby are full. Face was symmetrical. [id number] diffuse disuse atrophy was noted in arms or legs. Deep tendon reflexes were good 2+ with equivocal plantars. Results Labs CBC & Chem 7: 04/15/20 13:04 04/15/20 13:04 Labs: Short CBC 04/15/20 Range/Units 13:04 WBC 9.5 (4.8-10.8) X10*3/uL Hgb 13.4 (12.0-16.0) g/dl Hct 43.2 (37-47) % Plt Count 224 (160-400) X10*3/uL BMP 04/15/20 13:04 Sodium 140 Potassium 4.2 Chloride 104 Carbon Dioxide 26 BUN 18 H Creatinine 0.58 Calcium 9.5 Liver Function 04/15/20 Range/Units 13:04 Total Bilirubin 0.4 (0.0-1.0) mg/dL AST 16 (5-31) U/L ALT 16 (0-31) U/L Alkaline Phosphatase 82 (39-117) U/L Albumin 3.6 (3.5-5.0) g/dL Her noncontrast head CT revealed moderate amount of hypodense signal abnormalities in the white matter and moderate atrophy mostly central. Assessment and Plan (1) Syncope: Status: Acute 55 years old woman with underlying history of multiple sclerosis came to hospital with an episode of passing out x2 with no obvious convulsion. There was no indication of MS exacerbation. She might have syncopized related to low blood pressure. I would rule out usual causes including infection. Overall impression is not typical of seizure disorder.
[2020-04-16 14:10] LABS: Glucose Urine UA NEG (NEG); Leukocyte Esterase Urine NEG (NEG); Nitrite Urine POS (NEG); UACC Culture Trigger YES; Urine Blood NEG (NEG); Urine Ketones NEG (NEG); Urine Protein NEG (NEG-TRACE)
[2020-04-16 14:15] LABS: Appearance Urine CLEAR; Color Urine YELLOW
[2020-04-16 14:19] LABS: Bacteria Urine 1+ /LPF; RBC Urine 0 /HPF (0); Squamous Epithelial Cell Urine TRACE /LPF; WBC Urine 0 /HPF (0-4)
[2020-04-16] MEDS: cefTRIAXone sodium 1 GM in 0.9 % Sodium Chloride 50 ML IV (15:03)
--- NOTE | 2020-04-16 15:59 | HO.PM.IMPN ---
Subjective Subjective Date of Service: 04/17/20 Interval History: Syncopal episode . Review of Systems Patient seems feeling better, blood pressures still softer Denies any abdominal pain chest pain or cough or phlegm. Physical Exam Vital Signs: Vital Signs: Last Vital Signs Temp 97.5 F 04/16/20 15:18 Pulse 68 04/16/20 15:18 Resp 18 04/16/20 15:18 BP 119/60 04/16/20 15:18 Pulse Ox 98 04/16/20 15:18 Body Mass Index 28.8 Physical exam: Constitutional: Not in acute distress Cvs: rrr, [id number] , no murmur res: clear to auscultation ,no rhonchii or wheezing abd: no rebound or guarding ,nt, bs present. ext pulses present , no cyanosis neuro: axo3 , nonfocal. Objective Data Current Medications Generic Name Dose Route Start Last Admin Trade Name Freq PRN Reason Stop Dose Admin Albuterol Sulfate 2 puff 04/15/20 16:59 Albuterol Sulfate 90 Mcg 8 Gm Inhaler INHALE Q6H PRN Shortness Of Breath Baclofen 40 mg 04/15/20 17:00 04/16/20 15:04 Baclofen 20 Mg Tablet PO 40 mg QID AMADO Administration Bupropion HCl 300 mg 04/16/20 09:00 04/16/20 08:50 Bupropion Hcl Xl 150 Mg Tab.Er.24h PO 300 mg DAILY AMADO Administration Calcium Carbonate/Cholecalciferol 250 mg 04/16/20 09:30 04/16/20 09:43 Calcium + Vitamin D 250 Mg Tablet PO 250 mg BIDWM AMADO Administration Cyanocobalamin 1,000 mcg 04/16/20 09:00 04/16/20 08:50 Cyanocobalamin (Vitamin B-12) 1,000 Mcg Tablet PO 1,000 mcg DAILY AMADO Administration Enoxaparin Sodium 40 mg 04/15/20 17:00 04/15/20 17:25 Enoxaparin Sodium 40 Mg/0.4 Ml Syringe SUBCUT 40 mg Q24H AMADO Administration Ferrous Sulfate 324 mg 04/16/20 09:00 04/16/20 08:50 Ferrous Sulfate 324 Mg Tablet.Dr PO 324 mg DAILY AMADO Administration Gabapentin 100 mg 04/15/20 21:00 04/15/20 20:29 Gabapentin 100 Mg Capsule PO 100 mg BEDTIME AMADO Administration Sodium Chloride 1,000 mls @ 100 mls/hr 04/15/20 17:00 04/16/20 15:00 Ns IVCONT 100 mls/hr .Q10H AMADO Administration Ceftriaxone Sodium 1 gm/ 50 mls @ 100 mls/hr 04/16/20 15:00 04/16/20 15:03 Sodium Chloride IV 100 mls/hr Q24H AMADO Administration Levothyroxine Sodium 150 mcg 04/16/20 06:30 04/16/20 05:24 Levothyroxine Sodium 150 Mcg Tablet PO 150 mcg DAILY@0630 AMADO Administration Non-Formulary Medication 20 mg 04/16/20 09:00 Glatiramer [Copaxone] SUBCUT DAILY [facility] Omeprazole 20 mg 04/16/20 06:30 04/16/20 05:24 Omeprazole 20 Mg Capsule. PO 20 mg DAILY@0630 [facility] Administration Pharmacy Consult 1 each 04/15/20 15:40 Consult Rx Perform Med Rec MISCELLANE ONCE PRN Consult order Pravastatin Sodium 40 mg 04/15/20 21:00 04/15/20 20:29 Pravastatin Sodium 40 Mg Tablet PO 40 mg BEDTIME AMADO Administration Sodium Chloride 3 ml 04/16/20 00:00 04/16/20 08:51 0.9 % Sodium Chloride Flush 3 Ml Syringe IVFLUSH 3 ml QSHIFT [facility] Administration Labs CBC & Chem 7: 04/15/20 13:04 04/15/20 13:04 Assessment and Plan (1) Syncope: Status: Acute Assessment and Plan: 1. Syncope:? Unclear etiology: EKG and troponin seems fine tele-seems fine Hydration with normal saline IV Orthostasis-possible boderline as per yesterday vitals (lying bp: 107/94mmhg , sitting 94/55mmhg) neuro eval: Will hydrate ? Positive for nitrate and bacteria,but no wbc : urine cultures pending will defer antibiotics 2. Hypothyroidism: Continue home levothyroxine . 3. Ms hx: Continue capxone , baclofen. 4. History of depression: Continue bupropion
[2020-04-16] MEDS: Enoxaparin Sodium 40 MG/0.4 ML SYRINGE SUBCUT (17:17)
[2020-04-16] MEDS: Pravastatin Sodium 40 MG TABLET PO (21:24)
[2020-04-16] MEDS: Gabapentin 100 MG CAPSULE PO (21:24)
[2020-04-17] MEDS: 0.9 % Sodium Chloride 1,000 ML 100 ML IVCONT (00:34)
[2020-04-17 04:00] VITALS: BP 130/62; PULSE 69; RESP 18; TEMP 36.6; O2SAT 96
[2020-04-17] MEDS: Omeprazole 20 MG CAPSULE.DR PO (05:55)
[2020-04-17] MEDS: Levothyroxine Sodium 150 MCG TABLET PO (05:55)
[2020-04-17 07:30] VITALS: BP 130/69; PULSE 75; RESP 18; TEMP 36.4; O2SAT 95
[2020-04-17] MEDS: Calcium + Vitamin D 250 MG TABLET PO (07:35)
[2020-04-17] MEDS: Ferrous Sulfate 324 MG TABLET.DR PO (07:35)
[2020-04-17] MEDS: Cyanocobalamin (Vitamin B-12) 1,000 MCG TABLET 1000 MCG PO (07:36)
[2020-04-17] MEDS: buPROPion HCl XL 150 MG TAB.ER.24H 300 MG PO (07:36)
[2020-04-17 12:00] VITALS: BP 130/62; PULSE 82; RESP 20; TEMP 36.6; O2SAT 95
[2020-04-17 15:15] VITALS: BP 123/69; PULSE 73; RESP 19; TEMP 36.6
[2020-04-17 15:20] VITALS: BP 123/69; PULSE 19; RESP 19; TEMP 36.6; O2SAT 94
--- NOTE | 2020-04-17 16:10 | P.DS_ITS ---
DS: Providers Provider Date of Service: 04/17/20 Date of admission: 04/15/20 16:59 Primary care physician: Keara Ordoñez MSN Consults: 04/16/20 07:56 Consult to Neurology Routine Consulting Provider: [facility] Reason for consultation: syncope ?unclear etiology Has provider been notified: No DS: Diagnosis Discharge Diagnosis (1) Syncope: Status: Acute DS: Medications Discharge Medications Home Medications: Home Medications Medication Instructions Recorded Confirmed albuterol sulfate [Ventolin HFA] 2 puff INHALATION Q6H PRN 04/15/20 04/15/20 baclofen 40 mg PO QID 04/15/20 04/15/20 bupropion HCl 300 mg PO QAM 04/15/20 04/15/20 calcium carbonate-vitamin D3 1 tab PO BIDWM 04/15/20 04/15/20 [Calcium 600 + D(3)] cyanocobalamin (vitamin B-12) 1,000 mcg PO DAILY 04/15/20 04/15/20 [Vitamin B-12] ferrous sulfate 325 mg PO DAILY 04/15/20 04/15/20 gabapentin 100 mg PO BEDTIME 04/15/20 04/15/20 glatiramer [Copaxone] 20 mg SUBCUT DAILY 04/15/20 04/15/20 levothyroxine 150 mcg PO DAILY@0630 04/15/20 04/15/20 naproxen 500 mg PO BID PRN 04/15/20 04/15/20 omeprazole 20 mg PO DAILY@0630 04/15/20 04/15/20 pravastatin 40 mg PO BEDTIME 04/15/20 04/15/20 trazodone 100 mg PO BEDTIME 04/15/20 04/15/20 Previous Rx's Medication Instructions Recorded cefuroxime axetil 250 mg PO Q12H #14 tab 04/17/20 DS: Summary Hospital Course Hospital Course: 55-year-old female with history of multiple sclerosis and bed-bound, history was taken from patient as well as ED physician information: It seems like patient was about to take shower with the help of 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 She says that she has not eating well from past few days has less appetite, denies any nausea or vomiting or abdominal pain or fever or chills. She said prior to the passing out she felt somewhat lightheaded but otherwise denies any palpitation or any seizure-like activity or any chest pain- before/during or after episode of syncope. She said that she also gets somewhat anxious when she needs to get the shower. She had a prior syncopal episode 1 year ago and that she says thats episode was related to hot whether- she says it does not looks similar to her prior syncopal episode. She only moves upper extremities, does not move lower extremities and bed-bound due to MS. Lab bauer found to have pre renal azotemia otherwise most of the other labs are unremarkable. ED physician requested admission for syncope. Hospital Course problem bauer section: Patient came with the brief syncopal episode at home: Subsequently found to have borderline blood pressure as well as history bauer patient was probably dehydrated, initial blood pressure was also has some component of orthostasis: Telemetry seems fine, echo also came out to be fine. Seen by neurology -thought to be syncopal related to underlying blood pressure and dehydration. Further syncopal workup outpatient as per PCP. Patient was encouraged for p.o. hydration and oral intake food bauer. Patient also has some nitrate in the urine as well as urine culture are growing Gram-negative gauri we will start the patient on Ceftin upon discharge, please complete the course. Above management discussed with the patient in detail length she understand and in agreement with the above plan, time spent 50 minutes and 50% time spent on counseling. Significant findings: As above. Procedures performed: None. Treatment and response: As above. Complications: None. Time Spent with Patient Time attestation: Total time spent providing and/or coordinating discharge services: Discharge coordination time: Greater than 30 minutes Physical Exam Vital Signs: Vital Signs: Last Vital Signs Temp 97.8 F 04/17/20 15:20 Pulse 19 L 04/17/20 15:20 Resp 19 04/17/20 15:20 BP 123/69 04/17/20 15:20 Pulse Ox 94 04/17/20 15:20 Body Mass Index 28.8 Physical exam: Consideration: Not in acute distress. HEENT: Eyes: Anicteric, no discharge. Neck supple Cvs: rrr, [id number] , no murmur res: clear to auscultation ,no rhonchii or wheezing abd: no rebound or guarding ,nt, bs present. ext pulses present , no cyanosis neuro: axo3 ,lower ext weakness (ch. due to MS)bed-bound due to MS. DS: Data Data Completed and Pending Labs on day of discharge: Laboratory Tests 04/15/20 04/15/20 04/15/20 13:04 13:04 13:04 WBC 9.5 RBC 4.73 Hgb 13.4 Hct 43.2 MCV 91.3 MCH 28.3 MCHC 31.0 RDW 13.7 Plt Count 224 MPV 11.3 Immature Gran % (Auto) 0.3 Neut % (Auto) 75.8 H Lymph % (Auto) 15.4 L Sutter % (Auto) 5.8 Eos % (Auto) 1.7 Baso % (Auto) 1.0 Lymph # (Auto) 1.5 Sutter # (Auto) 0.6 Eos # (Auto) 0.2 Baso # (Auto) 0.1 Abs Immat Gran (auto) 0.03 Absolute Neuts (auto) 7.2 Absolute Nucleated RBC 0.000 Nucleated RBC % (auto) 0.0 PT 13.4 H INR 1.1 APTT 32.0 D-Dimer < 200 Sodium 140 Potassium 4.2 Chloride 104 Carbon Dioxide 26 Anion Gap 14 BUN 18 H Creatinine 0.58 Estim Creat Clear Calc 124.4 Estimated GFR > 60 Random Glucose 111 Calcium 9.5 Total Bilirubin 0.4 AST 16 ALT 16 Alkaline Phosphatase 82 Troponin I High Sens Total Protein 7.0 Albumin 3.6 Urine Color Urine Appearance Urine pH Ur Specific [place] Urine Protein Urine Glucose (UA) Urine Ketones Urine Blood Urine Nitrite Ur Leukocyte Esterase Urine RBC Urine WBC Ur Squamous Epith Cells Urine Bacteria COVID-19 (MARIELA) COVID-19 Clin Com 04/15/20 04/15/20 04/16/20 13:04 14:31 13:14 WBC RBC Hgb Hct MCV MCH MCHC RDW Plt Count MPV Immature Gran % (Auto) Neut % (Auto) Lymph % (Auto) Sutter % (Auto) Eos % (Auto) Baso % (Auto) Lymph # (Auto) Sutter # (Auto) Eos # (Auto) Baso # (Auto) Abs Immat Gran (auto) Absolute Neuts (auto) Absolute Nucleated RBC Nucleated RBC % (auto) PT INR APTT D-Dimer Sodium Potassium Chloride Carbon Dioxide Anion Gap BUN Creatinine Estim Creat Clear Calc Estimated GFR Random Glucose Calcium Total Bilirubin AST ALT Alkaline Phosphatase Troponin I High Sens < 3.5 Total Protein Albumin Urine Color YELLOW Urine Appearance CLEAR Urine pH 6.0 Ur Specific [place] 1.010 Urine Protein NEG Urine Glucose (UA) NEG Urine Ketones NEG Urine Blood NEG Urine Nitrite POS H Ur Leukocyte Esterase NEG Urine RBC 0 Urine WBC 0 Ur Squamous Epith Cells TRACE Urine Bacteria 1+ COVID-19 (MARIELA) Negative COVID-19 Clin Com See Note Preliminary micro results at discharge 04/16/20 00:00 Urine Culture - Preliminary Urine clean catch - Clean Catch Midstream Gram negative gauri Discharge Plan Discharge Patient Disposition: Home Health Service Referrals: Keara Ordoñez, MSN [Primary Care Provider] - Discharge Medications: New cefuroxime axetil 250 mg tablet 250 mg PO Q12H Qty: 14 RF: 0 Continued pravastatin 40 mg Tablet 40 mg PO BEDTIME RF: 0 cyanocobalamin (vitamin B-12) [Vitamin B-12] 1,000 mcg Tablet 1,000 mcg PO DAILY RF: 0 calcium carbonate-vitamin D3 [Calcium 600 + D(3)] 600 mg(1,500mg) -200 unit Tablet 1 tab PO BIDWM RF: 0 baclofen 20 mg Tablet 40 mg PO QID RF: 0 trazodone 100 mg Tablet 100 mg PO BEDTIME RF: 0 ferrous sulfate 325 mg (65 mg iron) Tablet 325 mg PO DAILY RF: 0 levothyroxine 150 mcg Tablet 150 mcg PO DAILY@0630 RF: 0 omeprazole 20 mg Capsule,Delayed Release(Dr/Ec) 20 mg PO DAILY@0630 RF: 0 gabapentin 100 mg Capsule 100 mg PO BEDTIME RF: 0 albuterol sulfate [Ventolin HFA] 90 mcg/actuation Hfa Aerosol Inhaler 2 puff INHALATION Q6H PRN (Reason: Shortness Of Breath) RF: 0 bupropion HCl 150 mg Tablet Extended Release 24 Hr 300 mg PO QAM RF: 0 glatiramer [Copaxone] 20 mg/mL Syringe 20 mg SUBCUT DAILY RF: 0 naproxen 500 mg tablet 500 mg PO BID PRN (Reason: Pain (Scale Score 1-3)) RF: 0 Discharge Orders: Discharge Order (Routine); Ordered 04/17/20 Ordered By: Stu Loco Diet: advance to usual diet Activity on Discharge: As tolerated Stand Alone Forms: Patient Portal Discharge page Care Plan Goals: Patient came with the brief syncopal episode at home: Subsequently found to have borderline blood pressure as well as history bauer patient was probably dehydrated, initial blood pressure was also has some component of orthostasis: Telemetry seems fine, echo also came out to be fine. Seen by neurology -thought to be syncopal related to underlying blood pressure and dehydration. Further syncopal workup outpatient as per PCP. Patient was encouraged for p.o. hydration and oral intake food bauer. Patient also has some nitrate in the urine as well as urine culture are growing Gram-negative gauri we will start the patient on Ceftin upon discharge, please complete the course. Health Concerns: as above. Plan of Treatment: As above.
== END 2020-04-17 17:00 | disposition home health service (06) ==
LOC: HO.ED 12:51 → HO.IMC 17:27
PROVIDERS: Physician Assistant; Admitting Provider Internal Medicine; Emergency Provider Emergency Medicine; PCP Family Medicine; Visit Provider Internal Medicine
DX: R55 Syncope and collapse (principal); I10 Essential (primary) hypertension; G35 Multiple sclerosis; F41.9 Anxiety disorder, unspecified; R51.9 Headache, unspecified; R94.31 Abnormal electrocardiogram [ECG] [EKG]; Z74.01 Bed confinement status; Z20.822 Contact with and (suspected) exposure to COVID-19; Z88.8 Allergy status to other drugs, medicaments and biological substances; Z79.899 Other long term (current) drug therapy
CPT/HCPCS: 36415; 70450; 80053; 81001; 81003; 84484; 85025; 85379; 85610; 85730; 87086; 87088; 87186; 87635; 93005; 93306; 96360; 99219; 99285; J0696; J1650